=== PATIENT | male | born 1980 | race Caucasian/White ===

== ENCOUNTER → 2017-01-11 09:18 | Emergency (ER) | payer BC ==
[~2017-01-11 09:18] MED LIST: Diazepam SYRINGE* 5 MG/ML SYRINGE IV ONE; Meperidine SYRINGE* 50 MG/ML ONE; Midazolam* 1 MG/ML 10 ML VIAL (10 MG) ONE; NS 0.9% 1000 ML* 1,000 ML IV ONE
--- NOTE | 2017-01-11 10:36 | RAD ---
INDICATION: ] Globus sensation COMPARISON: None TECHNIQUE: 2 views neck were obtained with soft tissue technique FINDINGS: The soft tissue elements about the neck to include the epiglottis are normal. The airways patent. The prevertebral soft tissues are normal. No acute bony change is noted IMPRESSION: NEGATIVE EXAMINATION.
[2017-01-11 10:50] LABS: Hematocrit 50 % (42-52); Hemoglobin 17.2 g/dl (14.0-18.0); Mean Corpuscular HGB Conc 35 g/dl (31-36); Mean Corpuscular Hemoglobin 30 pg (27-31); Mean Corpuscular Volume 86 fL (80-94); Mean Platelet Volume 8 um3 (7.4-10.4); Red Blood Count 5.74 10^6/ul (4.0-5.4); Red Cell Distribution Width 12 % (10.5-15); White Blood Count 7.3 10^3/ul (3.5-10.8)
[2017-01-11 11:12] LABS: EGFR African American 121.9 (>60); EGFR Non-African American 94.8 (>60); Potassium 3.7 mmol/L (3.5-5.0)
--- NOTE | 2017-01-11 11:25 | RAD ---
Indication: Choking. Throat feels constricted. Comparison: Soft tissue neck exam on the same date. Technique: Sitting AP and lateral chest views. Report: Clear lungs and pleural spaces. No conspicuous foreign body. Negative for pneumothorax. The heart, pulmonary vasculature, and mediastinal contours are unremarkable. No pneumomediastinum evident. Negative for free air beneath the diaphragm. Unremarkable osseous structures and soft tissue contours. IMPRESSION: No evidence for acute intrathoracic disease.
[2017-01-11 14:56] VITALS: BP 126/83
--- NOTE | 2017-01-11 19:45 | CONS ---
GASTROENTEROLOGY CONSULT: DATE: 01/11/17 REFERRING PHYSICIANS: Dr. Charles Veloz, emergency room; Dr. Brock Sherwood, Family Medicine.* REASON FOR CONSULT: Sense of dysphagia and probable chicken impaction in a man known to have eosinophilic esophagitis. 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 He was having chicken wings while on vacation in [place] and felt something lodge. He did go to a [facility] care center, but as he was not vomiting or running a fever or drooling, no action was taken. Ever since then, he has continued to have a feeling that things will not pass though he has been able to drink water and milk. This morning, however, he thought water was just layering in his esophagus and he came to the emergency room. In the emergency room, he appeared in no cardiorespiratory distress and had normal vital signs without any fever. He was not drooling. Neck film did not show any foreign body. Chest x-ray was unremarkable and blood work unremarkable. With a history suggesting that there may be chicken stuck in his esophagus, he was held for observation. PAST MEDICAL HISTORY: Eosinophilic esophagitis - he was living in [place] when he developed dysphagia and had endoscopy there with the biopsy apparently showing eosinophilia. It is not clear what treatment was given there. He was seen by Dr. Thomas here in 2010 and treated with Flovent. Most recently, the patient says he has been taking omeprazole 2-week boxes 4 times a year on a scheduled regular basis. At one point, he was taking a compounding pharmacy preparation of steroids delivered from [place] to the [facility] here. SOCIAL HISTORY: He is from [facility]. He has a long-term girlfriend, Genesis, who works at a [employer]. REVIEW OF SYSTEMS: He denies any history of cardiac, pulmonary, hepatic, or renal disease. He has not been admitted for any other reason. He has major trouble about 5 or 6 times a year with a piece of meat sticking and has to vomit it back up. This episode has been the longest that he has ever had. PHYSICAL EXAM: He is a healthy-appearing young man in no cardiorespiratory distress. His pulse is around 80, he is afebrile. There is no adenopathy. Mucous membranes are normal. His lungs are clear and heart sounds are regular. The abdomen is symmetric, soft, and nontender. Extremities are without edema or rash. IMPRESSION: A 36-year-old man with an 8-year history of eosinophilic esophagitis, receiving periodic courses of PPIs and in the past given topical corticosteroids. While on vacation in [place], he felt something lodge and has had a persistent problem since then. He has been able to tolerate fluids and there has been no fever and he is not drooling. As he is in the emergency room with these continuing subacute complaints, he will be endoscoped and any foreign body removed. He is hoping for dilation of a stricture though it would only be possible if there is no major injury focally from a foreign body. Dilation would be limited and he will have to follow up for more definitive long -term treatment. [id number]/[facility] #: [id number] DENG
--- NOTE | 2017-01-12 02:23 | PRO ---
DATE: 01/11/17 REFERRING PHYSICIAN: Brock Sherwood MD* PROCEDURE: Upper gastrointestinal endoscopy and balloon dilation of EG junction stricture to 12 mm at 38 to 39 cm insertion distance. 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 He went to an Urgent Care Facility and did not appear to be in an emergent situation, so was discharged. Those records are not available for review. He has had persistently since then a sense that he could not swallow anything other than water. This morning, however, even water _ milk seemed to just tie layer and caused chest pressure. He had been endoscoped by Dr. Thomas in 2010 and 2013, treated at one point with Flovent and then a steroid reportedly, [facility] in [place]. He has been taking quarterly omeprazole 2-week boxes at a time. Informed consent was obtained with an opportunity for questions and special concerns. The possibility of dilating him was mentioned though, if a foreign body was present for 3 days, it would not likely be possible. Additionally, the possibility of admitting him should the esophagus appear deeply injured, was also discussed. ENDOSCOPIST: Dr. Vaughan. MEDICATIONS: Midazolam 10, meperidine 125. FINDINGS: He is a healthy-appearing young man, in no distress. There is no adenopathy. His lungs are clear and heart sounds are normal. The abdomen is muscular, firm, and without focal finding. EGD: Larynx - not seen. Esophagus - easily entered, the mucosa is normal in the upper and mid esophagus. There was no retained fluid or material. In the distal esophagus beyond 33 or 34, there is a little bit of a scarring and stiffness evident and possibly some furrowing. Remarkably there was no foreign body present. There is a stricture at 38 cm. It is an early uniform circumferential rubbery ring. The scope goes through easily, but appears to be close to the limit of the stricture. There was then a small hiatal hernia. Stomach - generally normal mucosa in the cardia, fundus, body, and antrum. There were no erosions. Duodenum - the pylorus, bulb, and second through fourth portions appear normal. Following the diagnostic scoping, a balloon dilator was placed across the EG junction and inflated to an estimated 11 mm (1.5 atmospheres). This resulted in a small split at 5 o'clock orientation. It appeared small enough such that increasing the dilation to 12 mm was appropriate. This was done for an additional 45 seconds at 3 atmospheres. The patient tolerated this well. There was some modest bleeding, maybe 10 to 15 cc is associated. The rent could be seen with an appropriate depth at 5 o'clock. IMPRESSION: 1. Eosinophilic esophagitis. 2. Focal gastroesophageal junction stricture - now dilated to 12 mm. 3. Eosinophilic esophagitis - at this time, twice a day PPI therapy will be instituted continuously until he can follow up with Dr. Thomas for a longer- term choices in light of his long-term history. [id number]/[facility] #: [id number] MTDD
== END ==
LOC: ED 09:18
DX: R13.10 Dysphagia, unspecified (principal); T18.128A Food in esophagus causing other injury, initial encounter; X58.XXXA Exposure to other specified factors, initial encounter; Y93.9 Activity, unspecified; Y92.9 Unspecified place or not applicable; Y99.9 Unspecified external cause status
CPT/HCPCS: 36415; 70360; 71020; 80048; 85027; 85610; 96360; 99283; J2250; J3360

== ENCOUNTER 2017-05-01 18:48 | Emergency (ER) | payer BC ==
[2017-05-01] MEDS ORDERED: Glucagon* 1 MG VIAL IV ONE (19:45)
[2017-05-01 23:45] VITALS: BP 137/77
--- NOTE | 2017-05-02 11:35 | ED ---
Chavez Ko Nikita, scribed for Shaheen Vivar MD on 05/01/17 at 1930 . Throat Pain/Nasal Congestion - HPI Summary HPI Summary: This patient is a 37 year old M presenting to ED with a chief complaint of foreign body in his esophagus since 1699. Pt thinks he has meat stuck in his esophagus from his dinner. Pt was unable to swallow water s/p food intake. Pt then vomited up phlegm and food; 0.5 hours later, he tried to swallow water, but couldnt take in a lot. The patient rates the pain 0/10 in severity. Symptoms aggravated by nothing. Symptoms alleviated by nothing. PMHx of esophageal strictures and esophagitis. - History of Current Complaint Chief Complaint: EDForeignBodyEsophag Time Seen by Provider: 05/01/17 19:24 Hx Obtained From: Patient Onset/Duration: Sudden Onset - 1699, Lasting Hours, Still Present Cough: None - Productive vomiting with phlegm and food. couldn't swallow water. Related History: Other (Noted In Comments) - esophageal strictures and esophagitis - Allergies/Home Medications Allergies/Adverse Reactions: Allergies Allergy/AdvReac Type Severity Reaction Status Date / Time No Known Allergies Allergy Verified 01/11/17 10:38 PMH/Surg Hx/FS Hx/Imm Hx Endocrine/Hematology History: Denies: Hx Diabetes Cardiovascular History: Denies: Hx Coronary Artery Disease, Hx Hypertension Neurological History: Comment Only: Other Neuro Impairments/Disorders - ESOPHAGITIS - Immunization History Date of Tetanus Vaccine: unknown Date of Influenza Vaccine: UTD Infectious Disease History: No Infectious Disease History: Denies: Traveled Outside the [place] in Last 30 Days - Family History Known Family History: Positive: Cardiac Disease, Hypertension, Diabetes - Social History Alcohol Use: Occasionally Hx Substance Use: No Substance Use Type: Reports: None Hx Tobacco Use: No Smoking Status (MU): Never Smoked Tobacco Review of Systems Positive: Other - foreign body in esophogus, couldn't swallow water Positive: Vomiting - Productive with phlegm and food. All Other Systems Reviewed And Are Negative: Yes Physical Exam Triage Information Reviewed: Yes Vital Signs On Initial Exam: Initial Vitals Temp Pulse Resp BP Pulse Ox 98.0 F 74 15 147/84 100 05/01/17 18:51 05/01/17 18:51 05/01/17 18:51 05/01/17 18:51 05/01/17 18:51 Vital Signs Reviewed: Yes Appearance: Positive: Well-Appearing, No Pain Distress Skin: Positive: Warm, Skin Color Reflects Adequate Perfusion, Dry Head/Face: Positive: Normal Head/Face Inspection Eyes: Positive: Normal ENT: Positive: Normal ENT inspection Neck: Positive: Supple, Nontender Respiratory/Lung Sounds: Positive: Clear to Auscultation, Breath Sounds Present Cardiovascular: Positive: RRR Abdomen Description: Positive: Nontender, Soft Bowel Sounds: Positive: Present Musculoskeletal: Positive: Normal Neurological: Positive: Normal, Sensory/Motor Intact, Alert, Oriented to Person Place, Time, CN Intact II-III Psychiatric: Positive: Affect/Mood Appropriate Diagnostics - Vital Signs Vital Signs Temp Pulse Resp BP Pulse Ox 05/01/17 18:51 98.0 F 74 15 147/84 100 - Laboratory Lab Statement: Any lab studies that have been ordered have been reviewed, and results considered in the medical decision making process. Re-Evaluation - Re-Evaluation First Eval Re-Evaluation Time: 21:51 Change: Improved Comment: Pt is feeling better. Discussed discharge plan. EENT Course/Dx - Course Course Of Treatment: Mr. Ledbetter has know esophageal strictures from GERD which have been opened up in the past. He was eating meat and felt it get caught up high. He drank some water and on presentation it felt like it was down low and the water would get stopped but eventually drain without vomiting. He was given IV Glucagon and was able to swallow normally after awhile. - Diagnoses Provider Diagnoses: Esophageal foreign body Discharge - Discharge Plan Condition: Stable Disposition: HOME Patient Education Materials: Esophageal Foreign Body (ED) Referrals: Perry Thomas MD [Medical Doctor] - 3 Days The documentation as recorded by the Chavez perez Nikita accurately reflects the service I personally performed and the decisions made by me, Shaheen Vivar MD.
== END 2017-05-01 22:05 | disposition home or self-care (01) ==
LOC: ED 18:48
DX: T18.108A Unspecified foreign body in esophagus causing other injury, initial encounter (principal); X58.XXXA Exposure to other specified factors, initial encounter; Y92.9 Unspecified place or not applicable; I10 Essential (primary) hypertension
CPT/HCPCS: 96374; 99283; J1610

== ENCOUNTER 2017-08-23 08:39 | Emergency (ER) | payer BC ==
[2017-08-23 08:50] VITALS: BP 130/77
--- NOTE | 2017-08-23 09:20 | UC ---
Throat Pain/Nasal Ryan HPI - HPI Summary HPI Summary: Patient presents with a past medical history of esophagitis, and recent esophagus dilation. He reports that he also just completed a course of corticosteriods flovent that was RX for him, and he now complains of throat pain , and discomfort when he eats/swallows. He also complains of a sensative tongue , with a white coating. He called his GI office who wanted him checked for fungal infection secondary to the steroid use. - History of Current Complaint Chief Complaint: UCGU Stated Complaint: SORE THROAT Time Seen by Provider: 08/23/17 09:01 Hx Obtained From: Patient Onset/Duration: Gradual Onset, Lasting Days Severity: Mild Cough: Nonproductive Associated Signs & Symptoms: Positive: Dysphagia - Epiglottits Risk Factors Epiglottis Risk Factors: Negative - Allergies/Home Medications Allergies/Adverse Reactions: Allergies Allergy/AdvReac Type Severity Reaction Status Date / Time No Known Allergies Allergy Verified 08/23/17 08:50 PMH/Surg Hx/FS Hx/Imm Hx Previously Healthy: Yes GI/ History: Gastroesophageal Reflux - Surgical History Surgical History: None Surgery Procedure, Year, and Place: denies - Family History Known Family History: Positive: Cardiac Disease, Hypertension, Diabetes - Social History Occupation: Employed Full-time Lives: Alone Alcohol Use: Occasionally Substance Use Type: None Smoking Status (MU): Never Smoked Tobacco Review of Systems Constitutional: Negative Skin: Negative Eyes: Negative ENT: Sore Throat Respiratory: Negative Cardiovascular: Negative Gastrointestinal: Negative Genitourinary: Negative Motor: Negative Neurovascular: Negative Musculoskeletal: Negative Neurological: Negative Psychological: Negative Is Patient Immunocompromised?: No All Other Systems Reviewed And Are Negative: Yes Physical Exam Triage Information Reviewed: Yes Appearance: Well-Appearing Vital Signs: Initial Vital Signs Temp 98.8 F 08/23/17 08:43 Pulse 78 08/23/17 08:43 Resp 18 08/23/17 08:43 BP 130/77 08/23/17 08:43 Pulse Ox 100 08/23/17 08:43 Vital Signs Reviewed: Yes Eye Exam: Normal ENT: Positive: Uvula midline, Other - tongue coated with white plague. Dental Exam: Normal Neck exam: Normal Neck: Positive: 1 Respiratory Exam: Normal Cardiovascular Exam: Normal Musculoskeletal Exam: Normal Skin Exam: Normal Throat Pain/Nasal Course/Dx - Course Course Of Treatment: Patient presents with a past medical history of eosinophil esophagitis, and recently completed flovent as treatment following a esophgeal dilation. He presents with dysphagia, and white plague on his tongue. He was treated with nystatin swish and swallow for 10 days, and I recommend he follow up with his GI physician as soon as possible to ensure the the fungal infection and resolved and that there are no other underlying infections that need to be determined and treated. I could not perform that testing here today, and I did not feel he needed and emergent GI consultations. The discharge arlette was discussed with the patient and he was in agreement. - Differential Dx/Diagnosis Differential Diagnosis/HQI/PQRI: Other - oral candidiasis Provider Diagnoses: oral candidiasis Discharge - Discharge Plan Condition: Stable Disposition: HOME Prescriptions: Nystatin SUSPENSION* 500,000 units .SEE ORDER QID #200 ml Patient Education Materials: Oral Candidiasis (ED) Referrals: No Primary Care Phys,NOPCP [Primary Care Provider] - Additional Instructions: I recommend that you follow up with your [employer] as soon as possible to further evaluate your concerns.
== END 2017-08-23 09:25 | disposition home or self-care (01) ==
LOC: UCEAST 08:39
DX: B37.0 Candidal stomatitis (principal)
CPT/HCPCS: 87651; 99212; G0463

== ENCOUNTER 2017-08-31 08:06 | Emergency (ER) | payer BC ==
[2017-08-31] MEDS ORDERED: NS 0.9% 1000 ML* 1,000 ML IV ONE (08:43)
[2017-08-31 09:06] LABS: ABS Basophils 0.1 10^3/ul (0-0.2); ABS Eosinophils 0.4 10^3/ul (0-0.6); ABS Lymphocytes 1.3 10^3/ul (1.0-4.8); ABS Monocytes 0.4 10^3/ul (0-0.8); ABS Neutrophils 2.8 10^3/ul (1.5-7.7); ABS Nucleated RBC 0 10^3/ul; Eosinophil % 7.7 % (0-6); Hematocrit 49 % (42-52); Hemoglobin 16.9 g/dl (14.0-18.0); Lymphocyte % 26.9 % (25-47); Mean Corpuscular HGB Conc 35 g/dl (31-36); Mean Corpuscular Hemoglobin 31 pg (27-31); Mean Corpuscular Volume 87 fL (80-94); Mean Platelet Volume 8 um3 (7.4-10.4); Nucleated Red Blood Cells % 0.1; Platelet Count 254 10^3/ul (150-450); Red Blood Count 5.56 10^6/ul (4.0-5.4); Red Cell Distribution Width 13 % (10.5-15); White Blood Count 4.9 10^3/ul (3.5-10.8)
[2017-08-31] MEDS ORDERED: Ketorolac INJ* 30 MG/ML 1 ML VIAL IV PUSH ONE (09:45)
--- NOTE | 2017-08-31 09:48 | ED ---
Schuyler Ko Angela, scribed for Josefina Fernandez MD on 08/31/17 at 0857 . Abdominal Pain/Male - HPI Summary HPI Summary: This pt is a 37 y/o male presenting to [facility] c/o dysphagia. Pt has a hx of GERD and esophageal strictures. Pt is followed up by Dr. Thomas (GI). Pt reports he has been having sensation of esophagus fullness and bilateral sharp neck pain with swallowing certain foods. Pt reports he describes fullness as pressure while eating and as he eats more he begins to have bilateral lateral neck pain. He is still able to swallow. Pt also reports nausea, mucous in throat, excess gas. Denies vomiting, fever, chills, cough, diarrhea. Pt notes he last ate yesterday, mashed potatoes and reports he was burping for hours. 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 Pt took 100 mg of Ibuprofen days ago with no relief. He states his last endoscopy was on 2016 and was dilated from 12 to 15 mm. In december 2016, pt had dilation from 9 to 12 mm. After first dilation in 2008, pt felt better for a couple of years. Pt has contacted Dr. Thomas and has an endoscopy scheduled for Tuesday, September 05, 2017. Pt state he just wanted to be checked. Denies cp, sob. mild RUQ pain. Pt denies sinus congestion, PND, sore throat. Pt states was evaluated by Dr. Miller recently and had unremarkable exam Pt does not think he grinds his teeth, but is unsure Pt with recent 7 day treatment for oral thrush Pt's PCP is Dr. Gonzalez. Pt is currently on Dexilant, and notes in the past he was on omeprazole. Patients medication reviewed this visit. - History of Current Complaint Chief Complaint: EDAbdPain Stated Complaint: ABD PAIN, NECK PAIN Time Seen by Provider: 08/31/17 08:54 Hx Obtained From: Patient, Medical Records Onset/Duration: Lasting Days, Still Present Timing: Lasting Days Severity Currently: Moderate Pain Intensity: 5 Pain Scale Used: 0-10 Numeric Location: Discrete At: RUQ, Epigastric Radiates: No Character: Burning, Other: - fullness Aggravating Factor(s): Food Alleviating Factor(s): NPO, Other: - movement of neck Associated Signs And Symptoms: Positive: Urinary Symptoms - intermittent dysuria , Nausea, Other - POS: esophageal fullness, dysphagia, neck pain, RUQ pain, excess gas, dark stool. Negative: Fever, Cough, Vomiting, Diarrhea - Allergies/Home Medications Allergies/Adverse Reactions: Allergies Allergy/AdvReac Type Severity Reaction Status Date / Time No Known Allergies Allergy Verified 08/23/17 08:50 PMH/Surg Hx/FS Hx/Imm Hx Previously Healthy: Yes Endocrine/Hematology History: Denies: Hx Diabetes, Hx Thyroid Disease Cardiovascular History: Denies: Hx Coronary Artery Disease, Hx Hypertension Respiratory History: Denies: Hx Asthma, Hx Chronic Obstructive Pulmonary Disease (COPD) GI History: Reports: Hx Gastroesophageal Reflux Disease, Other GI Disorders - esophageal strictures Denies: Hx Ulcer Neurological History: Comment Only: Other Neuro Impairments/Disorders - ESOPHAGITIS - Surgical History Surgery Procedure, Year, and Place: denies - Immunization History Date of Tetanus Vaccine: unknown Date of Influenza Vaccine: UTD Infectious Disease History: No Infectious Disease History: Denies: Hx Clostridium Difficile, Hx Hepatitis, Hx Human Immunodeficiency Virus (HIV), Hx of Known/Suspected MRSA, Hx Shingles, Hx Tuberculosis, Hx Known/ Suspected VRE, Hx Known/Suspected VRSA, History Other Infectious Disease, Traveled Outside the [place] in Last 30 Days - Family History Known Family History: Positive: Cardiac Disease, Hypertension, Diabetes Family History: No FHx of esophageal strictures or hernias - Social History 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 Negative: Vomiting, Diarrhea Positive: dysuria - intermittent Musculoskeletal: Negative Skin: Negative Neurological: Negative All Other Systems Reviewed And Are Negative: Yes Physical Exam Triage Information Reviewed: Yes Vital Signs On Initial Exam: Initial Vitals Temp Pulse Resp BP Pulse Ox 97.8 F 93 18 115/74 98 08/31/17 08:08 08/31/17 08:08 08/31/17 08:08 08/31/17 08:08 08/31/17 08:08 Vital Signs Reviewed: Yes Appearance: Positive: Well-Appearing, No Pain Distress, Well-Nourished Skin: Positive: Warm, Skin Color Reflects Adequate Perfusion, Dry Head/Face: Positive: Normal Head/Face Inspection Eyes: Positive: Normal, EOMI, CHARISMA, Conjunctiva Clear ENT: Positive: Hearing grossly normal, Pharynx normal, Pharyngeal erythema, Nasal congestion, Nasal drainage, TMs normal, Uvula midline, Other - no PND No thrush Full AROM c spine Pt relates discomfort along platysmus with ROM c spine and direct palpation Neck: Positive: Supple, Nontender, No Lymphadenopathy Respiratory/Lung Sounds: Positive: Clear to Auscultation, Breath Sounds Present , Decreased Breath Sounds Cardiovascular: Positive: Normal, RRR, Pulses are Symmetrical in both Upper and Lower Extremities Abdomen Description: Positive: No Organomegaly, Soft, Other: - mild RUQ pain no guarding, no rebound soft + BS. Negative: Nontender Bowel Sounds: Positive: Present Musculoskeletal: Positive: Normal Neurological: Positive: Normal, Sensory/Motor Intact, Alert, Oriented to Person Place, Time - Berkley Coma Scale Coma Scale Total: 15 Diagnostics - Vital Signs Vital Signs Temp Pulse Resp BP Pulse Ox 08/31/17 08:08 97.8 F 93 18 115/74 98 - Laboratory Result Diagrams: 08/31/17 08:52 08/31/17 08:52 Lab Statement: Any lab studies that have been ordered have been reviewed, and results considered in the medical decision making process. - Radiology Chest XR Xray Interpretation: No Acute Changes - IMPRESSION: No active cardiopulmonary disease. Dr. Fernandez has reviewed this radiology report. Radiology Interpretation Completed By: Radiologist - Ultrasound No standard instances Ultrasound Interpretation: No Acute Changes - Abdomen US IMPRESSION: No acute sonographic pathology of the visualized portion of the abdomen. Dr. Fernandez has reviewed this radiology report. Ultrasound Interpretation Completed By: Radiologist Re-Evaluation - Re-Evaluation First Eval Re-Evaluation Time: 11:43 Change: Improved Comment: REviewed labs and imaging with pt. Pt states mild improved discomfort neck are following Toradol. Pt tolerated apple juice. will d/c. f/u with Dr. Thomas for scope and planned on Tuesday. Pt comfortable and in agreement with plan Abdominal Pain Fem Course/Dx - Course Assessment/Plan: Pt with discomfort in his anterior neck and fullness with swallowing food. Pt had endoscopy with dilatation 7/14 and is scheduled to be rescoped next Tuesday. Pt with stable vs and non concerning exam. discomfort along platysmus muscle. Pt with mild RUQ pain. Will check labs, ultrasound, cxr. toradol. reassess. Pt comfortable and in agreement with plan - Diagnoses Provider Diagnoses: Dysphagia Discharge - Discharge Plan Condition: Stable Disposition: HOME Patient Education Materials: Dysphagia (ED) Referrals: Benito Gonzalez MD [Primary Care Provider] - Additional Instructions: - Stay well hydrated. It is recommended you avoid excess caffeine and all alchol - Eat small, frequent meals - Okay to alternate ibuprofen (Motrin, Advil) and tylenol every 3 hours for pain. Take with food. Okay to take liquid medication. Take with food - Keep your appointment with Dr. Thomas as scheduled on Tuesday - Contact Dr. Thomas or return with questions or concerns The documentation as recorded by the Schuyler perez Angela accurately reflects the service I personally performed and the decisions made by me, Josefina Fernandez MD.
[2017-08-31] MEDS ORDERED: Ketorolac INJ* 15 MG/ML 1 ML VIAL ONE (09:54)
[2017-08-31 10:11] LABS: EGFR Non-African American 100.6 (>60)
--- NOTE | 2017-08-31 10:39 | RAD ---
HISTORY: Abdominal pain, neck pain, right upper quadrant pain COMPARISONS: January 11, 2017 VIEWS: 4: Frontal dual-energy and lateral views of the chest. FINDINGS: CARDIOMEDIASTINAL SILHOUETTE: The cardiomediastinal silhouette is normal. LORNE: The lorne are normal. PLEURA: The costophrenic angles are sharp. No pleural abnormalities are noted. LUNG PARENCHYMA: The lungs are clear. ABDOMEN: The upper abdomen is clear. There is no subphrenic gas. BONES AND SOFT TISSUES: No bone or soft tissue abnormalities are noted. OTHER: None. IMPRESSION: NO ACTIVE CARDIOPULMONARY DISEASE.
--- NOTE | 2017-08-31 10:46 | RAD ---
HISTORY: Abdominal pain, right upper quadrant pain COMPARISONS: None TECHNIQUE: Multiple transverse and longitudinal ultrasound images were obtained of the right upper quadrant of the abdomen using grayscale and color Doppler imaging. FINDINGS: LIVER: The liver is normal in shape, size, contour, and echogenicity. There are no focal parenchymal masses. There is normal hepatopedal flow of the portal vein on Doppler imaging. BILIARY TREE: There is no intrahepatic or extrahepatic biliary dilatation. The common duct measures 0.2 cm. GALLBLADDER: The gallbladder is well-visualized. There is no cholelithiasis, gallbladder wall thickening, pericholecystic fluid, or sonographic Khanna sign. PANCREAS: The head of the pancreas is unremarkable. The tail of the pancreas is not well visualized secondary to overlying bowel gas. RIGHT KIDNEY: The right kidney is normal in shape, size, contour, and echogenicity. There is no hydronephrosis or nephrolithiasis. The right kidney measures 11.6 x 4.6 x 5 cm. AORTA AND IVC: The aorta and IVC are unremarkable. FLUID: There are no pleural effusions. There is no free fluid within the hepatorenal recess. OTHER FINDINGS: None. IMPRESSION: NO ACUTE SONOGRAPHIC PATHOLOGY OF THE VISUALIZED PORTION OF THE ABDOMEN
[2017-08-31 11:20] LABS: Urine Appearance Clear; Urine Blood Negative (Negative); Urine Color Straw; Urine Ketones Trace (Negative); Urine Protein Negative (Negative); Urine Specific Gravity 1.006 (1.010-1.030); Urine Urobilinogen Negative (Negative)
[2017-08-31 12:18] VITALS: BP 111/72
== END 2017-08-31 12:17 | disposition home or self-care (01) ==
LOC: ED 08:06
DX: R13.10 Dysphagia, unspecified (principal); R10.11 Right upper quadrant pain; R11.0 Nausea
CPT/HCPCS: 36415; 71046; 76705; 80053; 81003; 83690; 83735; 85025; 96361; 96374; 96375; 99282; J1885

== ENCOUNTER 2018-09-07 12:13 | Emergency (ER) | payer OTHER ==
[2018-09-07 12:31] VITALS: BP 120/79
--- NOTE | 2018-09-07 13:17 | UC ---
Throat Pain/Nasal Ryan HPI - HPI Summary HPI Summary: Pt c/o ST and enlarged, tender lymph nodes in neck. Pt has been following with DR. Vázquez regarding lymph adenopathy, had CT and FNA of neck with all studies being negative in May 2018. Pt is scheduled to see DR. Vázquez in two weeks but states he is traveling in the next week for vacation and wants to "make sure he is fine". - History of Current Complaint Chief Complaint: UCGeneralIllness Stated Complaint: ST,[place] Time Seen by Provider: 09/07/18 12:56 Hx Obtained From: Patient Onset/Duration: Gradual Onset, Lasting Weeks, Still Present Severity: Severe Pain Intensity: 7 Cough: None Associated Signs & Symptoms: Positive: Dysphagia - Epiglottits Risk Factors Epiglottis Risk Factors: Negative - Allergies/Home Medications Allergies/Adverse Reactions: Allergies Allergy/AdvReac Type Severity Reaction Status Date / Time No Known Allergies Allergy Verified 09/07/18 12:27 PMH/Surg Hx/FS Hx/Imm Hx Previously Healthy: Yes - Surgical History Surgical History: None Surgery Procedure, Year, and Place: denies - Family History Known Family History: Positive: Cardiac Disease, Hypertension, Diabetes Family History: No FHx of esophageal strictures or hernias - Social History Occupation: Employed Full-time Lives: With Family Alcohol Use: Rare Substance Use Type: None Smoking Status (MU): Never Smoked Tobacco Have You Smoked in the Last Year: No Review of Systems All Other Systems Reviewed And Are Negative: Yes Constitutional: Positive: Negative Skin: Positive: Negative Eyes: Positive: Negative ENT: Positive: Sore Throat, Other - tender lymphadenopathy Respiratory: Positive: Negative Cardiovascular: Positive: Negative Gastrointestinal: Positive: Negative Genitourinary: Positive: Negative Motor: Positive: Negative Neurovascular: Positive: Negative Musculoskeletal: Positive: Negative Neurological: Positive: Negative Psychological: Positive: Negative Is Patient Immunocompromised?: No Physical Exam Triage Information Reviewed: Yes Appearance: Well-Appearing Vital Signs: Initial Vital Signs Temp 97.9 F 09/07/18 12:25 Pulse 74 09/07/18 12:25 Resp 16 09/07/18 12:25 BP 120/79 09/07/18 12:25 Pulse Ox 100 09/07/18 12:25 Vital Signs Reviewed: Yes Eye Exam: Normal ENT Exam: Normal ENT: Positive: TM bulging Dental Exam: Normal Neck: Positive: Enlarged Nodes @ - bialteral submaxillary, c/o tenderness Respiratory Exam: Normal Cardiovascular Exam: Normal Musculoskeletal Exam: Normal Neurological Exam: Normal Psychological Exam: Normal Skin Exam: Normal Diagnostics - Laboratory Diagnostic Studies Completed/Ordered: rapid strep: negative. Pt asked to leave befoer test was complete. Pt was called and I discussed the results with the pt. Pt verbalized understanding and agreed to plan of care. Throat Pain/Nasal Course/Dx - Differential Dx/Diagnosis Differential Diagnosis/HQI/PQRI: Other - lymphadenopathy Provider Diagnosis: Lymphadenopathy of head and neck, Sore throat Discharge - Sign-Out/Discharge Documenting (check all that apply): Patient Departure All imaging exams completed and their final reports reviewed: No Studies - Discharge Plan Condition: Stable Disposition: HOME Patient Education Materials: Pharyngitis (ED), Lymphadenopathy (ED) Referrals: Benito Gonzalez MD [Primary Care Provider] - If Needed Harish Vázquez MD [Medical Doctor] - As Soon As Possible Additional Instructions: PLEASE FOLLOW UP WITH YOUR PCP SOON POSSIBLE. YOU ELECTED TO LEAVE BEFORE ALL TESTING WAS COMPLETE. WE WILL CALL YOU AT OUR CONVENIENCE WITH THE RESULTS OF YOUR TESTING AT OUR FACILITY. - Billing Disposition and Condition Condition: STABLE Disposition: Home
== END 2018-09-07 13:14 | disposition home or self-care (01) ==
LOC: UCCORT 12:13
DX: R59.1 Generalized enlarged lymph nodes (principal); J02.9 Acute pharyngitis, unspecified
CPT/HCPCS: 87651; 99212; G0463